=== PATIENT | male | born 1955 | race Two or more races ===

== ENCOUNTER 2024-06-29 09:30 | Inpatient (IN) | payer OTHER ==
[~2024-06-29] VITALS: Ht 172.7 cm; Wt 97.5 kg
[2024-06-29] MEDS ORDERED: LOTREL 5-20 MG1 CAP PO (10:59)
[2024-06-29] MEDS ORDERED: ZYRTEC10 M3 PO (10:59)
[2024-06-29 11:00] VITALS: BP 162/96
[2024-06-29 11:04] VITALS: BP 167/82
[2024-06-29 12:10] LABS: RH POSITIVE
[2024-07-05] MEDS ORDERED: VANCOMYCIN HCL 1,000 MG VIAL IR ONE (09:00)
[2024-07-05] MEDS ORDERED: CEFAZOLIN SODIUM 1,000 MG VIAL IV ONE (09:00)
[2024-07-05] MEDS ORDERED: TRANEXAMIC ACID 100MG/1ML (1000MG) AMPUL IV ONE ×2 (09:00)
[2024-07-05] MEDS ORDERED: KETOROLAC TROMETHAMINE 60 MG VIAL IM ONE ×2 (09:00)
[2024-07-05] MEDS ORDERED: POVIDONE-IODINE 118 ML BOTT TOP ONE (09:15)
[2024-07-05] MEDS ORDERED: MORPHINE SULFATE 4 MG/ML VIAL IV ONE (09:15)
[2024-07-05] MEDS ORDERED: OxyCODONE HCL 5 MG TABLET (ROXICODONE) PO PRN (10:15)
[2024-07-05] MEDS ORDERED: SODIUM CHLORIDE 0.45 % 1,000 ML IV SCH (10:15)
[2024-07-05] MEDS ORDERED: MORPHINE SULFATE 4 MG/ML CARTRIDGE IV PRN (10:15)
[2024-07-05] MEDS ORDERED: ONDANSETRON HCL 2 MG/ML VIAL IV PRN (10:15)
[2024-07-05] MEDS ORDERED: ACETAMINOPHEN 500 MG GEL..CAP PO SCH (12:00)
[2024-07-05 12:45] VITALS: BP 162/96; O2SAT 98
[2024-07-05 15:46] VITALS: BP 146/85; O2SAT 94
[2024-07-05] MEDS ORDERED: CEFAZOLIN SODIUM 1,000 MG VIAL IV SCH (17:00)
[2024-07-05] MEDS ORDERED: GABAPENTIN 300 MG CAPSULE PO SCH (17:00)
[2024-07-05] MEDS ORDERED: FAMOtidine 20 MG TABLET PO SCH (21:00)
[2024-07-06 00:28] VITALS: BP 136/81; O2SAT 96
[2024-07-06] MEDS ORDERED: ELIQUIS2.5 MG PO (07:40)
[2024-07-06] MEDS ORDERED: PERCOCET 5-3251 EACH PO (07:40)
[2024-07-06] MEDS ORDERED: DUI500 PO (07:40)
[2024-07-06 08:00] VITALS: BP 147/84; O2SAT 95
[2024-07-06 08:18] LABS: HEMATOCRIT 36.4 % (39.0-48.0); MEAN CELL VOLUME 91.8 fL (80.0-100.00); MEAN CORPUSCULAR HEMOGLOBIN 32.8 pg (27.00-32.0); MEAN CORPUSCULAR HGB CONC 35.8 g/dl (32.0-36.0); PLATELET COUNT 135 K/uL (150-450); RED BLOOD COUNT 3.97 M/uL (4.00-6.00); RED CELL DISTRIBUTION WIDTH 13.5 % (11.5-14.5)
[2024-07-06] MEDS ORDERED: PATIENTS OWN MEDICATION (MEDICAMENTO EN PISO) PO SCH (09:00)
[2024-07-06] MEDS ORDERED: SENNOSIDES 1 TAB TABLET PO SCH (09:00)
[2024-07-06] MEDS ORDERED: APIXABAN 2.5 MG TABLET PO SCH (09:00)
[2024-07-06] MEDS ORDERED: Cyanocobalamin/Mecobalamin 1 TAB.SL SL SCH (11:51)
[2024-07-06] MEDS ORDERED: TAMSULOSIN HCL 0.4 MG CAP PO STA (13:07)
[2024-07-06 13:39] LABS: CALCIUM 9.1 mg/dL (8.5-10.1); CREATININE SERUM 1.1 mg/dL (0.70-1.30); GFR 66.37; POTASSIUM 3.92 mEq/L (3.5-5.1)
[2024-07-06 14:41] LABS: URINE APPEARANCE Turbid; URINE BILIRRUBIN Small (NEGATIVE); URINE BLOOD Moderate; URINE COLOR Red; URINE GLUCOSE Negative (NEGATIVE); URINE KETONE Negative (NEGATIVE); URINE LEUKOCYTE Moderate; URINE NITRATE Positive; URINE UROBILINOGEN 0.2 E.U./dl
[2024-07-06 14:43] LABS: URINE BACTERIA 1025.7 uL (0.0-1933); URINE EPITHELIAL CELLS 9.8 uL (0.0-38.8); URINE WBC 173.4 uL (0.0-23.2)
[2024-07-06 15:20] LABS: URINE PROTEIN 100 (NEGATIVE)
[2024-07-06 15:21] LABS: URINE RBC > 10588.9 uL (0.0-20.8)
[2024-07-06 15:55] VITALS: BP 151/160; O2SAT 99
[2024-07-06] MEDS ORDERED: VITAMIN B COMPLEX 1 EACH PO SCH (17:00)
[2024-07-06 21:13] VITALS: BP 126/82; O2SAT 97
[2024-07-07] VITALS: BP 119/69; O2SAT 97
[2024-07-07] MEDS ORDERED: IRON FUM,PS/FOLIC ACID/VITC/B3 1 CAP CAPSULE PO SCH (09:00)
[2024-07-07 11:02] VITALS: BP 178/80; O2SAT 100
[2024-07-07 16:36] LABS: URINE APPEARANCE Turbid; URINE BILIRRUBIN Small (NEGATIVE); URINE BLOOD Large; URINE COLOR Red; URINE GLUCOSE Negative (NEGATIVE); URINE KETONE Negative (NEGATIVE); URINE LEUKOCYTE Small; URINE NITRATE Positive; URINE PROTEIN 100 (NEGATIVE); URINE UROBILINOGEN 0.2 E.U./dl
[2024-07-07 16:36] LABS: HEMATOCRIT 33.2 % (39.0-48.0); HEMOGLOBIN 11.7 g/dL (13-16.00); MEAN CELL VOLUME 91.8 fL (80.0-100.00); MEAN CORPUSCULAR HEMOGLOBIN 32.4 pg (27.00-32.0); MEAN CORPUSCULAR HGB CONC 35.3 g/dl (32.0-36.0); RED BLOOD COUNT 3.62 M/uL (4.00-6.00); RED CELL DISTRIBUTION WIDTH 13.3 % (11.5-14.5)
[2024-07-07 16:43] LABS: URINE BACTERIA 118.7 uL (0.0-1933); URINE EPITHELIAL CELLS 38.6 uL (0.0-38.8); URINE WBC 56.2 uL (0.0-23.2)
[2024-07-07 16:45] LABS: PLATELET COUNT 117 K/uL (150-450)
[2024-07-07 16:58] LABS: URINE CRYSTALS FEW /HPF; URINE MUCUS SCANT; URINE RBC > 10558.9 uL (0.0-20.8)
[2024-07-07] MEDS ORDERED: TAMSULOSIN HCL 0.4 MG CAP PO SCH ×2 (17:00)
[2024-07-07 18:11] LABS: HEMOGLOBIN 11.9 g/dL (13-16.00); MEAN CELL VOLUME 92.2 fL (80.0-100.00); MEAN CORPUSCULAR HEMOGLOBIN 32.2 pg (27.00-32.0); MEAN CORPUSCULAR HGB CONC 34.9 g/dl (32.0-36.0); RED BLOOD COUNT 3.69 M/uL (4.00-6.00); RED CELL DISTRIBUTION WIDTH 13.2 % (11.5-14.5)
[2024-07-07 18:12] LABS: PLATELET COUNT 120 K/uL (150-450)
[2024-07-08 00:28] VITALS: BP 135/93; O2SAT 99
[2024-07-08 08:00] VITALS: BP 160/90; O2SAT 98
[2024-07-08] MEDS ORDERED: TAMSULOSIN HCL 0.4 MG CAP PO SCH (09:00)
[2024-07-08] MEDS ORDERED: CEFTRIAXONE SODIUM 2,000 MG in DEXTROSE 5 % IN WATER 100 ML IV SCH (15:41)
[2024-07-08] MEDS ORDERED: 0.9 % SODIUM CHLORIDE 1,000 ML IV SCH (15:45)
[2024-07-08 15:46] LABS: HEMATOCRIT 34.3 % (39.0-48.0); HEMOGLOBIN 11.8 g/dL (13-16.00); MEAN CELL VOLUME 92.8 fL (80.0-100.00); MEAN CORPUSCULAR HGB CONC 34.5 g/dl (32.0-36.0); RED CELL DISTRIBUTION WIDTH 13.4 % (11.5-14.5)
[2024-07-08 15:50] LABS: PLATELET COUNT 125 K/uL (150-450)
[2024-07-08 16:15] VITALS: BP 130/93; O2SAT 99
[2024-07-08 19:43] VITALS: BP 127/74; O2SAT 96
[2024-07-08 23:51] LABS: HEMATOCRIT 30.2 % (39.0-48.0); HEMOGLOBIN 10.6 g/dL (13-16.00); MEAN CELL VOLUME 92.4 fL (80.0-100.00); MEAN CORPUSCULAR HEMOGLOBIN 32.5 pg (27.00-32.0); MEAN CORPUSCULAR HGB CONC 35.1 g/dl (32.0-36.0); RED BLOOD COUNT 3.27 M/uL (4.00-6.00)
[2024-07-09 00:21] LABS: PLATELET COUNT 125 K/uL (150-450)
[2024-07-09 00:26] VITALS: BP 116/75; O2SAT 99
[2024-07-09 07:52] LABS: HEMATOCRIT 31.3 % (39.0-48.0); MEAN CELL VOLUME 92.9 fL (80.0-100.00); MEAN CORPUSCULAR HEMOGLOBIN 32.7 pg (27.00-32.0); MEAN CORPUSCULAR HGB CONC 35.2 g/dl (32.0-36.0); RED BLOOD COUNT 3.36 M/uL (4.00-6.00); RED CELL DISTRIBUTION WIDTH 13.4 % (11.5-14.5)
[2024-07-09 07:57] LABS: PLATELET COUNT 123 K/uL (150-450)
[2024-07-09 08:23] LABS: BILIRUBIN TOTAL 1.04 mg/dL (0.3-1.2); CALCIUM 9.6 mg/dL (8.5-10.1); CREATININE SERUM 1.1 mg/dL (0.70-1.30); GFR 66.37; GLOBULINA 3.1 G/DL (2.4-3.5); POTASSIUM 4.08 mEq/L (3.5-5.1); TOTAL PROTEIN 6.1 gm/dL (6.4-8.2)
[2024-07-09 09:09] VITALS: BP 126/78; O2SAT 97
[2024-07-09] MEDS ORDERED: TAMS0.4C PO (16:06)
[2024-07-09 17:54] VITALS: BP 137/82; O2SAT 99
[2024-07-10] MEDS ORDERED: NA PHOS,M-B/NA PHOS,DI-BA 1 BOTTLE ENEMA RECTAL SCH (19:00)
[2024-07-11] MEDS ORDERED: NA PHOS,M-B/NA PHOS,DI-BA 1 BOTTLE ENEMA RECTAL SCH (08:00)
== END 2024-07-09 18:13 | disposition home or self-care (01) | DRG 470 ==
LOC: O/R 07-05 06:05 → SURH 07-05 09:30 → SURG 07-05 11:41 → SURH 07-05 16:45 → SURG 07-09 18:13
PROVIDERS: Internal Medicine; ADMIT Orthopaedic Surgery; ATTEND Orthopaedic Surgery
PROC: 0QUF0JZ Supplement Left Patella with Synthetic Substitute, Open Approach (ICD-10-PCS; 2024-07-05)
PROC: 0MNP0ZZ Release Left Knee Bursa and Ligament, Open Approach (ICD-10-PCS; 2024-07-05)
PROC: 0SRD0JZ Replacement of Left Knee Joint with Synthetic Substitute, Open Approach (ICD-10-PCS; principal; 2024-07-05 16:45)
PROC: BT43ZZZ Ultrasonography of Bilateral Kidneys (ICD-10-PCS; 2024-07-07)
PROC: BW4GZZZ Ultrasonography of Pelvic Region (ICD-10-PCS; 2024-07-07)
DX: M17.12 Unilateral primary osteoarthritis, left knee (principal); D62 Acute posthemorrhagic anemia; I10 Essential (primary) hypertension; E66.9 Obesity, unspecified; F12.20 Cannabis dependence, uncomplicated; R31.9 Hematuria, unspecified; N40.0 Benign prostatic hyperplasia without lower urinary tract symptoms; M22.12 Recurrent subluxation of patella, left knee

== ENCOUNTER 2024-07-12 11:47 | Emergency (ER) | payer OTHER ==
[~2024-07-12] VITALS: Ht 172.7 cm; Wt 95.3 kg
[~2024-07-12 11:47] MED LIST: DUI500 PO; ELIQUIS2.5 MG PO; LOTREL 5-20 MG1 CAP PO; PERCOCET 5-3251 EACH PO; TAMS0.4C PO; ZYRTEC10 M3 PO
[2024-07-12] MEDS ORDERED: 0.9 % SODIUM CHLORIDE 1,000 ML IV SCH (13:00)
[2024-07-12 13:27] LABS: HEMOGLOBIN 11.6 g/dL (13-16.00); MEAN CELL VOLUME 91.5 fL (80.0-100.00); MEAN CORPUSCULAR HEMOGLOBIN 32.3 pg (27.00-32.0); MEAN CORPUSCULAR HGB CONC 35.3 g/dl (32.0-36.0); PLATELET COUNT 239 K/uL (150-450); RED CELL DISTRIBUTION WIDTH 13.7 % (11.5-14.5)
[2024-07-12 13:48] LABS: CALCIUM 10.1 mg/dL (8.5-10.1); CREATININE SERUM 1.02 mg/dL (0.70-1.30); GFR 72.41; POTASSIUM 4.14 mEq/L (3.5-5.1)
[2024-07-12] MEDS ORDERED: TRAMADOL HCL 50 MG TABLET PO ONE (14:45)
[2024-07-12 14:46] LABS: PH,URINE 5.5 (5.0-8.0); URINE APPEARANCE Turbid; URINE BILIRRUBIN Small (NEGATIVE); URINE BLOOD Large; URINE COLOR Orange; URINE GLUCOSE Negative (NEGATIVE); URINE KETONE Negative (NEGATIVE); URINE LEUKOCYTE Small; URINE NITRATE Negative
[2024-07-12 14:49] LABS: URINE CAST 1.61 uL (0.0-1.40); URINE EPITHELIAL CELLS 73.7 uL (0.0-38.8); URINE RBC 1408.8 uL (0.0-20.8); URINE WBC 28.1 uL (0.0-23.2)
[2024-07-12 15:08] LABS: URINE PROTEIN 100 (NEGATIVE)
[2024-07-12 15:17] LABS: URINE YEAST NEGATIVE /hpf
== END 2024-07-12 16:30 | disposition home or self-care (01) ==
LOC: ER 11:49
PROVIDERS: Emergency Medicine
DX: R31.9 Hematuria, unspecified (principal); Z96.652 Presence of left artificial knee joint; I10 Essential (primary) hypertension; Z88.6 Allergy status to analgesic agent